=== PATIENT | female | born 1960 | race African-American/Black ===

== ENCOUNTER 2023-12-05 13:27 | Emergency (ER) | payer OTHER ==
[~2023-12-05] VITALS: Ht 160 cm; Wt 68.0 kg
[~2023-12-05 13:27] MED LIST: ASPI-1160 PO; CLOP-31 PO; LIP40 MT
[2023-12-05 13:38] VITALS: BP 137/59; PULSE 83; RESP 20; TEMP 98.5; O2SAT 100
[2023-12-05] MEDS ORDERED: ACETAMINOPHEN 325MG TABLET PO ONE (14:30)
[2023-12-05] MEDS ORDERED: ACET-2708 MT (19:12)
[2023-12-05] MEDS ORDERED: LIDO700A15 TP (19:12)
== END 2023-12-05 19:34 | disposition home or self-care (01) ==
LOC: ER 14:03
DX: S22.32XA Fracture of one rib, left side, initial encounter for closed fracture (principal); Z86.73 Personal history of transient ischemic attack (TIA), and cerebral infarction without residual deficits; W01.0XXA Fall on same level from slipping, tripping and stumbling without subsequent striking against object, initial encounter; Y93.01 Activity, walking, marching and hiking; Y92.89 Other specified places as the place of occurrence of the external cause; Y99.8 Other external cause status
CPT/HCPCS: 71101; 99283